=== PATIENT | female | born 1970 | race American Indian/Alaskan Native ===

== ENCOUNTER 2018-07-13 10:16 | Inpatient (IN) | payer OTHER ==
[2018-07-09 11:16] LABS: BUN/Creatinine Ratio 10; Blood Urea Nitrogen 6 mg/dL (7-17); Calcium 8.5 mg/dL (8.4-10.2); Hemolysis Index 15
--- NOTE | 2018-07-09 11:16 | Anesthesia Consultation ---
Anesthesia Consult and Med Hx Date of service: 07/13/18 - Airway Anesthetic Teeth Evaluation: Good, Edentulous (Upper edentulous) Mental/Hyoid Distance: Adequate Mallampati Class: Class II Intubation Access Assessment: Good - Pre-Operative Health Status ASA Pre-Surgery Classification: ASA2 Proposed Anesthetic Plan: General Nerve Block: TAP - Pulmonary Hx Asthma: Yes (As a child) - Central Nervous System Hx Psychiatric Problems: No - Gastrointestinal Hx Gastroesophageal Reflux Disease: Yes - Hematic Hx Anemia: Yes - Other Systems Hx Alcohol Use: Yes (Occas) Hx Cancer: No
--- NOTE | 2018-07-12 22:58 | History and Physical Report ---
History of Present Illness Date of examination: 07/09/18 History of present illness: Patient has been reassessed/reevaluated. H&P has been reviewed. No interval changes. This is a 47 years old female who presents with menstrual disorder. The symptoms began 2 months ago. She complains of heavy bleeding, dysmenorrhea, clotting, fatigue and cramping, but denies irregular menses, mid-cycle spotting, lack of menses, history of ovarian cysts, history of thyroid disease, history of fibroids, history of PCOS, history of bleeding disorder and lightheadedness. Menses started at age 11. Interval between menses is 28 days and 30 days. Number of pads used per day is 9-10. Menstrual flow lasts > 7 days. The patient also presents with uterine fibroids. She complains of abdominal pain, abdominal pressure, pelvic pain, pelvic pressure, menorrhagia and intermenstrual bleeding. Treatment tried to date includes NSAIDs. .Patient's work up has included pelvic ultrasound which revealed large leiomyoma Vital Signs: Patient Profile: 47 Years Old Female LMP: 04/26/2018 Height: 65.5 inches (166.37 cm) Weight: 174 pounds (79.09 kg) BMI: 28.51 BSA: 1.88 Menstrual History: LMP (date): 04/26/2018 LMP - Character: normal Menarche: 11 Menses interval: 28-30 days Menstrual flow: 5-7 days Current Method of Contraception: BTL Past History : 4 Term Births: 3 Premature Births: 0 Living Children: 3 Para: 3 Mult. Births: 0 Prev : 0 Aborta: 1 Elect. Ab: 1 Spont. Ab: 0 Ectopics: 0 MANAGER CONSUMER INSIGHTS History Operations: PPTubal Ligation (05/1995) Abnormal PAP: negative Uterine Anomaly: positive fibroids Infection History HIV Risk Eval: no Personal hx. of genital herpes: no Partner hx. of genital herpes: no Current Allergies (reviewed today): ACETAMINOPHEN (ACETAMINOPHEN TABS) (Critical) Past Medical History: Asthma Anemia (05/2018) Blood Transfusion (05/2018) Past Surgical History: PPTubal Ligation (05/1995) Family History Summary: Other family member - Has No Family History of Ovarvian Cancer - Entered On: 06/01/2018 Other family member - Has No Family History of Colon Cancer - Entered On: 06/01/2018 Other family member - Has No Family History of Breast Cancer - Entered On: 06/01/2018 Other family member - Has Family History of Hypertension - Entered On: 06/01/2018 Other family member - Has Family History of Diabetes - Entered On: 06/01/2018 Social History: Marital Status: Children: 3 Occupation: [employer] Risk Factors: Smoked Tobacco Use: Never smoker Smokeless Tobacco Use: Never Passive smoke exposure: no Drug use: no HIV high-risk behavior: no Alcohol use: yes Type: occ Drinks per day: social Exercise: no Seatbelt use: 100 % Review of Systems General Denies fever, chills, sweats, anorexia, fatigue, weakness, malaise, weight loss and sleep disorder. Complains of amenorrhea and menorrhagia. Denies vaginal discharge, incontinence, dysuria, hematuria, urinary frequency, abnormal vaginal bleeding, pelvic pain, genital sores, decreased libido, painful periods, painful sex, urinary urgency, hot flashes, vaginal dryness, vaginal itching and vaginal odor. CV Denies chest pains, palpitations, syncope, dyspnea on exertion, orthopnea, PND and peripheral edema. Resp Denies cough, dyspnea at rest, excessive sputum, hemoptysis, wheezing and pleurisy. GI Denies nausea, vomiting, diarrhea, constipation, change in bowel habits, abdominal pain, melena, hematochezia, jaundice, gas/bloating, indigestion/heartburn, dysphagia and odynophagia. Breast Denies left breast lump, right breast lump, nipple discharge, bloody discharge from nipple, breast pain, abnormal mammogram and breast enlargement. Psych Denies depression, anxiety, irritability and mood swings. Past History Past Medical History: other (See HPI) Past Surgical History: Other (See HPI) Social history: full code, other (See HPI) Family history: other (See HPI) Medications and Allergies Allergies Allergy/AdvReac Type Severity Reaction Status Date / Time acetaminophen Allergy Swelling Verified 07/08/18 13:20 Home Medications Medication Instructions Recorded Confirmed Last Taken Type Ferrous Sulfate [Iron] 325 mg PO DAILY 07/08/18 07/08/18 07/12/18 History medroxyPROGESTERone ACETATE 1 tab PO DAILY 07/08/18 07/08/18 07/12/18 History [Medroxyprogesterone Acetate] Active Meds: Active Medications Lactated Ringer's (Lactated Ringers) 1,000 mls @ 125 mls/hr IV DIRECT LUKE Cefazolin Sodium (Ancef/Sterile Water 2 Gm/20 Ml) 2 gm in 20 mls @ 80 mls/hr IV PREOP NR; Protocol Stop: 07/13/18 14:00 Review of Systems Constitutional: other (See HPI) Exam - Physical Exam Narrative exam: HEENT: normocephalic, no lesions or deformities Skin no significant abnormal lesions or rashes Breasts: skin/areolae normal, no masses, no nipple discharge, no erythema/warmth/tenderness, and axillae normal. 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 Questions answered. Discussed with patient various medical, surgical and radiological therapies common for treatment inc luding myomectomy hysterectomy and uterine artery embolization Patient desires definitive treatment Patient desires hysterectomy Discussed risks and benefits of laparotomy, laparoscopy, vaginal and robotic assisted approaches for hysterectomies Patient desires hysterectomy Discussed risks and benefits of laparotomy, laparoscopy, vaginal and robotic assisted approaches for hysterectomies Patient desires a total abdominal hysterectomy. Consent reviewed and signed . The risks and alternatives for this surgery were reviewed with the patient. Discuss the risks of the surgery including infection, bleeding possibly heavy enough to require a blood transfusion, possible damage to bowel, bladder or ureter. Patient understands if her ovaries are removed she will become menopausal. Her questions were answered. Patient understands and desires to proceed . (2) Menorrhagia Current Visit: No Status: Acute Qualifiers: Menorrahagia type: with regular cycle Qualified Code(s): N92.0 - Excessive and frequent menstruation with regular cycle Plan to address problem: Probably secondary to # 1 (3) Dysmenorrhea Current Visit: No Status: Acute Plan to address problem: Probably secondary to # 1 (4) Anemia Current Visit: No Status: Acute Qualifiers: Iron deficiency anemia type: chronic blood loss
[2018-07-13] MEDS: LACTATED RINGERS 1,000 ML IV SCH ×2 (11:35→17:08)
[2018-07-13 11:52] LABS: Hematocrit 33.9 % (30.3-42.9); Hemoglobin 10.9 gm/dl (10.1-14.3); Mean Corpuscular HGB Conc 32 % (30-34); Mean Corpuscular Volume 88 fl (79-97); Platelet Count 260 K/mm3 (140-440); Red Blood Count 3.83 M/mm3 (3.65-5.03); Red Cell Distribution Width 16.6 % (13.2-15.2)
[2018-07-13] MEDS ORDERED: VERSED IV NR (11:57)
[2018-07-13] MEDS ORDERED: NEURONTIN PO NR (12:00)
[2018-07-13] MEDS ORDERED: ANCEF/STERILE WATER 2 GM/20 ML 2 GM/20 ML SYRINGE IV NR (12:00)
[2018-07-13] MEDS ORDERED: XYLOCAINE 1% 20 mL ONE (12:00)
[2018-07-13] MEDS ORDERED: MARCAINE-EPI 0.25%-1:200,000 INFILTRATI ONE (12:01)
[2018-07-13] MEDS ORDERED: XYLOCAINE MPF 2% ONE (12:17)
[2018-07-13] MEDS ORDERED: DIPRIVAN 10 MG/ML IV ONE (12:17)
[2018-07-13] MEDS ORDERED: ZEMURON IV ONE (12:17)
[2018-07-13] MEDS ORDERED: DILAUDID ONE ×2 (12:17→15:36)
[2018-07-13] MEDS ORDERED: ZOFRAN ONE (13:05)
[2018-07-13] MEDS ORDERED: DECADRON ONE (13:05)
[2018-07-13] MEDS ORDERED: ACD-A 500 ML IV ONE (13:26)
[2018-07-13] MEDS ORDERED: ACD-A IV ONE (13:32)
[2018-07-13] MEDS ORDERED: NACL 0.9% IR ONE (13:33)
[2018-07-13 14:09] LABS: Basophils % (Manual) 0 % (0.0-1.8); Platelet Estimate Consistent w Auto; Total Cells Counted 100
[2018-07-13] MEDS ORDERED: ROBINUL ONE (14:55)
[2018-07-13] MEDS ORDERED: BLOXIVERZ ONE (14:55)
[2018-07-13] MEDS ORDERED: TORADOL IV PRN (15:37)
[2018-07-13] MEDS ORDERED: TORADOL ONE (15:37)
[2018-07-13] MEDS: DILAUDID IV PRN ×2 (15:37→15:48)
--- NOTE | 2018-07-13 15:40 | Operative Report ---
Operative Report Operative Report: Date of procedure: 07/13/2018 Pre-operative diagnosis: Symptomatic leiomyomata with menorrhalgia and dysmenorr hea and right ovarian cyst Post-operative diagnosis: Same Procedure name(s): Total Adominal hysterectomy with bilateral salpingectomy Surgeon: Ming Doherty MD [employer] Supervisor: Meredith Crisostomo, staff certified nurse midwife Anesthesia: General endotracheal EBL: 400 mL patient received 150 mL back through Cell [facility]ver Complications: None Findings: Patient with uterus approximately 20 weeks in size with multiple leiomyomata largest approximately 10 cm in diameter. Large anterior lower segment myoma actually distorted her cervix and bladder to her right. She had bilateral interrupted fallopian tubes. Simple cysts on her right ovary approximately 2 cm in diameter and normal left ovary. Specimen(s): Uterus with cervix and bilateral fallopian tubes Procedure: Patient was brought into the operating room where general anesthesia was induced difficulty. She was placed in supine position. Prepped and draped in the usual sterile manner. A Pfannenstiel incision was made with a scalpel. This incision was taken out and the fascia. The fascia was nicked in the midline and this incision was extended laterally with Ellington scissors. The fascia was then from the rectus muscles both caudally and cephalically. The peritoneum was entered by grasping with hemostat and lifted high and cut with Metzenbaum scissors. No evidence of internal organ damage was noted. This incision was extended vertically. Patient was placed in Trendelenburg position. No evidence of damage to the bladder. An O'Kenmore O'Schofield self-retaining retractor was then placed incision. The bowel was packed out of the operative field. With the findings as noted above. The uterine fundus was then grasped with a tenaculum. Starting on the patient's right side the round ligament was double clamped cut and ligated. Anteriorly the bladder flap was formed. An avascular window under the utero-ovarian complex was created by the panama hat hydraulic press operator's fingers the uterine ovarian complex was double clamped and cut using Karie clamps and 0 Vicryl which was used throughout the case. The uterine vessels were then skeletonized clamped. The same procedure was then performed on the patient's left side. With the bladder flap pushed away further and the left uterine vessels clamped and cut. Again the bladder was pushed away and the clamp uterine vessels on the right side were cut. Progressively the uterine vasculature were clamped with a straight Karie clamp. At this point was noted that the patient's cervix and bladder was deviated to the patient's right.cystoscopy was made to remove the uterine fundus to better navigate the patient's abdomen. Karie clamps were placed on the side was spell to be the isthmus and the fundus was cut away with Ellington scissors. At this time the deviated cavity of the uterus was appreciated. Also with removal of the fundus the uterosacral ligaments were clearly identified. Progressive straight clamp and cut and the vessels were taken down the lower uterus and cervix and the uterosacrals were reached bilaterally . Again pushed away the bladder curved Karie clamps were placed across the top of the vaginal cuff. The specimen cut away from the vaginal cuff. The specimen was inspected and found to have complete removal of the cervix. The vaginal cuff was close starting with Corazon stitches at each corner. With interrupted [id number] sutures completing the closure midline. As its time the distal fallopian tubes on each side were grasped with a Tayler double clamped with Ceci clamps along the mesosalpinx and cut away and sutured with 0 Vicryl. The pelvis was then copiously irrigated all pedicles were found to be hemostatic. The ureters were identified bilaterally and found to be functioning normally. Perez was placed along the vaginal cuff for postoperative hemostasis all instruments were then removed. The rectus muscles were approximated with 0 Vicryl. The rectus muscles were inspected and found to be hemostatic and irrigation Bovie. The fascia was then closed in a running manner with 0 Vicryl. This closure was hemostatic at the irrigation and Bovie. The skin was then reapproximated subcuticularly with 4 Monocryl. The patient tolerated the procedure well. She was awakened in the operating room. Accompanied to recovery room in good condition. Instrument count correct 4.
[2018-07-13] MEDS ORDERED: SODIUM CHLORIDE FLUSH SYRINGE 10 ML IV PRN (16:47)
[2018-07-13] MEDS ORDERED: MILK OF MAGNESIA PO PRN (16:47)
[2018-07-13] MEDS ORDERED: ZOFRAN ODT PO PRN (16:47)
[2018-07-13] MEDS: ANCEF/NS 1 GM/50 ML 1 GM/50 ML BAG IV SCH (21:34)
[2018-07-13] MEDS: COLACE PO SCH (21:34)
[2018-07-13] MEDS: TORADOL IV SCH (21:34)
[2018-07-14] MEDS: D5LR 1,000 ML IV SCH ×2 (01:07→10:10)
[2018-07-14] MEDS: TORADOL IV SCH ×2 (03:37→09:45)
[2018-07-14] MEDS: ANCEF/NS 1 GM/50 ML 1 GM/50 ML BAG IV SCH (05:43)
[2018-07-14 05:46] LABS: Hematocrit 28.6 % (30.3-42.9); Hemoglobin 9.2 gm/dl (10.1-14.3)
[2018-07-14] MEDS: COLACE PO SCH ×2 (09:45→22:05)
--- NOTE | 2018-07-14 12:52 | Progress Note ---
Assessment and Plan - Patient Problems (1) Intramural leiomyoma of uterus Current Visit: No Status: Acute (2) Menorrhagia Current Visit: No Status: Acute Qualifiers: Menorrahagia type: with regular cycle Qualified Code(s): N92.0 - Excessive and frequent menstruation with regular cycle (3) Dysmenorrhea Current Visit: No Status: Acute (4) Anemia Current Visit: No Status: Acute Qualifiers: Iron deficiency anemia type: chronic blood loss (5) Status post total abdominal hysterectomy Current Visit: Yes Status: Acute Plan to address problem: Postoperative day #1. Discuss operative findings with patient and questions answered. Patient without fever. We'll ambulate in halls. We will continue routine postoperative care. Patient's postoperative hematocrit 28% Subjective Date of service: 07/14/18 Patient Reports: Positive: feels better, still having pain, pain is less, tolerating liquids well, voiding w/o difficulty, no flatus, no bowel movement, afebrile. Negative: nausea, vomiting Objective Vital Signs - 12hr 07/14/18 07/14/18 07/14/18 03:37 04:10 07:09 Temperature 98.4 F 98.7 F Pulse Rate 85 63 Respiratory 17 18 18 Rate Blood Pressure 114/56 107/50 [Right] O2 Sat by Pulse 97 Oximetry - General physical appearance well developed, well nourished, no distress - Respiratory normal respiratory effort - Abdomen soft, tender (appropriately post op day 1), bowel sounds normal, surgical scars (healing well) - Integumentary no rash, no growths, no abnormal pigmentation - Neurologic normal coordination - Musculoskeletal normal gait - Psychiatric oriented to time, oriented to person, oriented to place, speech is normal, memory intact - Labs 07/14/18 05:28 07/09/18 10:45
[2018-07-14] MEDS: TORADOL PO PRN ×2 (16:00→22:04)
[2018-07-15] MEDS: TORADOL PO PRN ×2 (08:33→13:45)
--- NOTE | 2018-07-15 09:35 | Discharge Summary ---
Providers - Providers Date of Admission: 07/13/18 10:59 Date of discharge: 07/15/18 Attending physician: JULIEN NARAYAN Primary care physician: CLARIFICATION OPERATOR Hospitalization Reason for admission: symptomatic leiomyomata Condition: Good Procedures: Total abdominal hysterectomy with bilateral salpingectomy Hospital course: Patient was admitted and underwent above procedure without complications. Her post operative course was benign she was afebrile throughout. Patient postoperative day 1 hematocrit was in an acceptable range. Patient had no orthostatic symptoms. Patient was tolerating regular diet and voiding without difficulty at time of discharge. Patient incision was healing well without evidence of infection. Disposition: DC-01 TO HOME OR SELFCARE - Discharge Diagnoses (1) Intramural leiomyoma of uterus Status: Acute (2) Menorrhagia Status: Acute Qualifiers: Menorrahagia type: with regular cycle Qualified Code(s): N92.0 - Excessive and frequent menstruation with regular cycle (3) Dysmenorrhea Status: Acute (4) Anemia Status: Acute Qualifiers: Iron deficiency anemia type: chronic blood loss (5) Status post total abdominal hysterectomy Status: Acute Core Measure Documentation - Palliative Care Palliative Care/ Comfort Measures: Not Applicable - Core Measures Any of the following diagnoses?: none Exam - Constitutional Vitals: Temp Pulse Resp BP Pulse Ox 98.6 F 64 20 116/62 99 07/15/18 04:37 07/15/18 04:37 07/15/18 04:37 07/15/18 04:37 07/15/18 04:37 General appearance: Present: no acute distress - Respiratory Respiratory effort: normal - Cardiovascular Rhythm: regular - Extremities Extremities: no ischemia, pulses intact, Full ROM - Abdominal General gastrointestinal: Present: soft, tender (appropriate postop), non- distended, normal bowel sounds Female genitourinary: Present: deferred - Rectal Rectal Exam: deferred - Integumentary Integumentary: Present: clear, warm, dry - Psychiatric Psychiatric: appropriate mood/affect, intact judgment & insight - Neurologic Neurologic: moves all extremities Plan Activity: advance as tolerated Diet: regular Wound: open to air Additional Instructions: Patient office for fever chills nausea vomiting or pain uncontrolled by pain relief. Patient instructed no heavy lifting for 6 weeks. No sex for 6 weeks. Follow up with: PRIMARY CARE, [Primary Care Provider] - 7 Days Prescriptions: Ferrous Sulfate [Feosol 325 MG tab] 325 mg PO BID #60 tablet Ibuprofen [Motrin 800 MG tab] 800 mg PO Q6H PRN #30 tablet PRN Reason: Pain Ketorolac [Toradol] 10 mg PO Q6H PRN #20 tablet PRN Reason: Pain
[2018-07-15 12:06] VITALS: BP 127/58
[2018-07-15] MEDS: COLACE PO SCH (13:05)
== END 2018-07-15 16:00 | disposition home or self-care (01) | DRG 743 ==
LOC: 3A 10:59 → OB 15:48
PROVIDERS: ADMIT Obstetrics & Gynecology; ATTEND Obstetrics & Gynecology
PROC: 0UT90ZZ Resection of Uterus, Open Approach (ICD-10-PCS; principal; 2018-07-13)
PROC: 0UT70ZZ Resection of Bilateral Fallopian Tubes, Open Approach (ICD-10-PCS; 2018-07-13)
DX: D25.1 Intramural leiomyoma of uterus (principal); N92.0 Excessive and frequent menstruation with regular cycle; N94.6 Dysmenorrhea, unspecified; D50.0 Iron deficiency anemia secondary to blood loss (chronic); N83.201 Unspecified ovarian cyst, right side; J45.909 Unspecified asthma, uncomplicated; K21.9 Gastro-esophageal reflux disease without esophagitis; Z83.3 Family history of diabetes mellitus; Z82.49 Family history of ischemic heart disease and other diseases of the circulatory system; Z98.51 Tubal ligation status; Z88.8 Allergy status to other drugs, medicaments and biological substances
CPT/HCPCS: 36415; 64450; 80048; 81025; 85007; 85014; 85018; 85025; 86850; 86900; 86901; 88302; 88307; G0378; A4217; J0690; J1100; J1170; J1885; J2250; J2405; J2704; J2710; J7120; J7121

== ENCOUNTER 2021-08-27 12:51 | Outpatient (CLI) | payer OTHER ==
--- NOTE | 2021-08-28 10:32 | Mammography Report ---
DIGITAL SCREENING MAMMOGRAM WITH CAD, 08/27/2021 CLINICAL INFORMATION / INDICATION: Routine screening TECHNIQUE: Digital bilateral 2D mammography was obtained in the craniocaudal and mediolateral obliqu e projections. This examination was interpreted with the benefit of Computer-Aided Detection analysis . COMPARISON: None currently available FINDINGS: Breast Density: There are scattered areas of fibroglandular density. No dominant mass, suspicious calcifications, or architectural distortion in either breast. IMPRESSION: No mammographic evidence of malignancy. Follow up recommendation: Routine yearly BI-RADS Category 1: NEGATIVE A "normal" or negative report should not discourage follow up or biopsy of a clinically significant f inding. A written summary of these findings will be mailed to the patient. The patient will be entered into a mammography reporting system which will generate a reminder letter for the patient's next appointmen t at the appropriate interval. The [employer] recommends yearly mammograms starting at age 40 and continuing as [place] as a woman is in good health. Breast MRI is recommended for women with an approximate 20-25% or greater lifetime risk of breast cancer, including women with a strong family history of breast or ova lily cancer or who have been treated for Hodgkin's disease. Signer Name: Rodolfo Ponce MD Signed: 08/28/2021 10:28 AM Workstation Name: [id number]
== END 2021-08-27 12:52 | disposition home or self-care (01) ==
LOC: MAMMO 12:51
PROVIDERS: ATTEND Obstetrics & Gynecology
DX: Z12.31 Encounter for screening mammogram for malignant neoplasm of breast (principal)
CPT/HCPCS: 77067